=== PATIENT | female | born 1990 | race Caucasian/White ===

== ENCOUNTER → 2016-07-06 | Outpatient (REF) | payer OTHER, MEDICAID ==
[~2016-07-06] MED LIST: /MOM400 PO; ACET50TA PO; CLAR5CHW; DOCU10ELUD PO; Fish Oil PO; IBUP800T; IRON325T3 PO; LAMI200T3 PO; LAMO10TA PO; MOTR200T44 PO; PERC5TAB6 PO; PRENTAB74 PO; PROP10TAB; PROZ20CA; PROZ40CA; TOPA100T8 PO; TOPI100T; VITA200038 PO; VITAMIN D50000 UNT; ZOLO25TA PO; ZOMI5TAB; [UNRECOGNIZED DRUG - CODE] TOP; [UNRECOGNIZED DRUG - OTHER]
== END ==
LOC: M LAB REF 13:01
PROVIDERS: ATTEND Advanced Practice Midwife
DX: Z34.83 Encounter for supervision of other normal pregnancy, third trimester (principal)

== ENCOUNTER → 2016-07-09 | Outpatient (CLI) | payer OTHER ==
--- NOTE | 2016-07-09 14:24 | REP ---
OBSTETRIC SONOGRAPHY: HISTORY: Supervision of growth study. Size/date discrepancy. FINDINGS: Scanning demonstrates a viable single intrauterine gestation in a cephalic lie. heart rate is recorded at 139 beats per minute. A posterior placenta is seen without evidence of previa. Amniotic fluid is subjectively normal. Amniotic fluid index is normal at 10.3 cm. There is evidence of umbilical cord around the neck. S/D ratio in the umbilical cord artery by Doppler is normal at 2.22. cranium, cavum, lungs, diaphragm, left-sided stomach, kidneys, bladder and spine are seen. Biometry Chart: BPD 8.8 cm = 35 weeks 5 days HC 33.1 cm = 37 weeks 5 days AC 32.8 cm = 36 weeks 5 days FL 7.1 cm = 36 weeks 3 days CD 3.5 cm = 29 weeks 4 days HC/AC ratio normal 1.01. Cephalic index normal 0.74. Estimated weight 2982 grams, 6 pounds 9 ounces, 71st percentile for 35 weeks 3 days. IMPRESSION: Viable single intrauterine gestation at 36 weeks 3 days by today's composite sonographic criteria. Expected gestational age estimate based on prior sonography is 35 weeks 3 days. ANSLEY by prior sonography is August 10, 2016. Nuchal cord was seen. Signed by Juan Broderick MD 07/09/2016 03:20 P
== END ==
LOC: M SMT 09:51
PROVIDERS: ATTEND Advanced Practice Midwife
DX: O26.843 Uterine size-date discrepancy, third trimester (principal); Z36 Encounter for antenatal screening of mother; Z3A.36 36 weeks gestation of pregnancy

== ENCOUNTER 2016-08-05 06:45 | Inpatient (IN) | payer MEDICAID, OTHER ==
[2016-08-05] VITALS (8 sets, daily range): BP systolic 138–156; BP diastolic 68–86
[~2016-08-05] VITALS: Ht 165.1 cm; Wt 114.0 kg
[2016-08-05] MEDS ORDERED: RANI1TAB6 PO (06:59)
[2016-08-05] MEDS: miSOPROStol 50 MCG 1/2 TAB (S0191) PO SCH ×2 (08:02→14:14)
[2016-08-05 08:03] LABS: MEAN CORPUSCULAR HEMOGLOBIN 25.2 pg (27.0-33.0); MEAN CORPUSCULAR HGB CONC 31.3 g/dl (32.0-36.5); MEAN CORPUSCULAR VOLUME 80.4 fl (80.0-96.0); WHITE BLOOD COUNT 7.4 K/mm3 (4.0-10.0)
[2016-08-05] MEDS ORDERED: PENICILLIN G POTASSIUM IV 5 MU in D5W MINI-BAG PLUS 100 ML IV STA (08:08)
--- NOTE | 2016-08-05 08:50 | HPE ---
DATE OF ADMISSION: 08/05/2016 HISTORY: A 26-year-old (G) 5, para (P) 3 female at 39-2/7 weeks gestation by last menstrual period (LMP) consistent with 10-week ultrasound, estimated date of confinement (EDC) 08/10/2016 who presents for labor induction. The indication for induction is essentially elective. However, the patient has a history of severe depression and wants to get back on her depression medications as soon as possible, so a secondary indication for the induction is history of severe depression. COURSE: The patient initiated care at 10 weeks gestation on 01/13/2016. Her first trimester blood pressure was 102/64, weight 233 pounds. She was on Zoloft during for depression. She had previously been on Lamictal for severe depression but stopped that prior to . She sees Dr. Haque for mental health evaluations. OBSTETRICAL HISTORY: 1. In 2010, a 41 week vaginal delivery of an 8 pound, 12 ounce female . No complications. 2. In 2011, a 6 week miscarriage. 3. In April 2012, vaginal delivery of a 6 pound, 7 ounce female infant, no complications, 39 weeks. 4. In November 2013, a 40 week vaginal delivery of an 8 pound, 3 ounce male . No complications. PAST MEDICAL HISTORY: 1. Severe depression and anxiety. 2. Migraine headaches. 3. Mild asthma. PAST SURGICAL HISTORY: 1. Breast reduction surgery in 2014. 2. Tonsils and adenoids in 2008. ALLERGIES: CODEINE. SOCIAL HISTORY: The patient is . She denies cigarettes, alcohol, or drug use. FAMILY HISTORY: Noncontributory. PHYSICAL EXAMINATION: Blood pressure 134/84, weight 249. She is in no apparent distress. HEAD AND NECK EXAMINATION: Normal. LUNGS: Clear. HEART: Regular rate and rhythm. ABDOMEN: Nontender, gravid. heart tones category 1. Cervix 2 cm, 50%, -2 station, vertex, soft, posterior. EXTREMITIES: Nontender. LABORATORY DATA: Blood type AB positive. Rubella immune. RPR nonreactive. Hepatitis B and C negative. HIV negative. GBS positive on 07/06/2016. ASSESSMENT: A 26-year-old (G) 5, para (P) 3 female at 39-2/7 weeks gestation who presents for induction of labor. The risks of induction were discussed. The patient is admitted on 08/05/2016.
[2016-08-05] MEDS: PENICILLIN G POTASSIUM IV 2.5 MU in D5W 100 ML IV SCH ×3 (12:15→19:59)
[2016-08-05] MEDS ORDERED: FENTANYL 2MCG/ML ROPIVACAINE 0.2% NACL 250 ML CADD As Ordered ONE (17:51)
[2016-08-05] MEDS ORDERED: LACTATED RINGER'S 1000 ML IV PRN (18:10)
[2016-08-05] MEDS ORDERED: REFRIGERATOR IV KEYS XX PRN (18:10)
[2016-08-05] MEDS ORDERED: diphenhydrAMINE INJ 50MG/ML VIAL (J1200) IV PRN (18:10)
[2016-08-05] MEDS ORDERED: ePHEDrine SULFATE 25 MG/5 ML(5MG/ML) SYRINGE IV PRN (18:10)
[2016-08-05] MEDS ORDERED: ONDANSETRON 4MG/2ML VIAL (J2405) IV PRN (18:10)
[2016-08-05] MEDS ORDERED: EPIDURAL/PCA KEYS XX PRN (18:10)
[2016-08-05] MEDS ORDERED: NALOXONE INJ 0.4 MG/1 ML VIAL (J2310) IV PRN (18:10)
[2016-08-05] MEDS ORDERED: FENTANYL/ROPIVACAINE/NACL CADD 250 ML EPIDURAL SCH (18:10)
[2016-08-05] MEDS ORDERED: EPIDURAL COMMENT XX SCH (18:10)
[2016-08-05] MEDS ORDERED: FAMOTIDINE 20 MG TAB PO ONE (19:00)
[2016-08-05] MEDS ORDERED: OXYTOCIN DRIP 30 UNITS in APPROPRIATE DILUENT 1 EA IV SCH (20:15)
[2016-08-06] MEDS ORDERED: DIBUCAINE 1% OINTMENT 30GM TOP PRN (01:00)
[2016-08-06] MEDS ORDERED: DOCUSATE SODIUM 100 MG CAP PO PRN (01:00)
[2016-08-06] MEDS ORDERED: OXYTOCIN DRIP 30 UNITS in APPROPRIATE DILUENT 1 EA IV ONE (01:00)
[2016-08-06] MEDS ORDERED: METHYLERGONOVINE MALEATE 0.2 MG TAB PO PRN (01:00)
[2016-08-06] MEDS ORDERED: MEASLES,MUMPS,RUBELLA VACCINE INJ (MMR-II) (90707) SC SCH (01:00)
[2016-08-06] MEDS ORDERED: RHOGAM 300 MCG (1500 IU) INJ (J2790) IM SCH (01:00)
[2016-08-06] MEDS: IBUPROFEN 800 MG TAB PO PRN ×3 (01:06→19:34)
[2016-08-06 05:55] VITALS: BP 141/94
[2016-08-06] MEDS: ACETAMINOPHEN 500 MG TAB PO PRN ×2 (05:58→15:42)
[2016-08-06] MEDS: PRENATAL VITAMIN TAB PO SCH (08:11)
--- NOTE | 2016-08-06 13:37 | DN ---
DATE OF DELIVERY: 08/05/2016 PRE-DELIVERY DIAGNOSIS: 39 weeks gestation. POST DELIVERY DIAGNOSIS: Delivered. PROCEDURE: Spontaneous vaginal delivery. SURGEON: Dr. Rajan Alejandro. RADIATION CONTROL HEALTH PHYSICIST: ANESTHESIA: Epidural. ESTIMATED BLOOD LOSS: 300 mL FINDINGS: 8 pound 13 ounce male infant, 7 and 9. DELIVERY SUMMARY: After short second stage, patient spontaneously delivered an 8 pound 13 ounce male with epidural anesthesia. 7 and 9. Nuchal cord time one was reduced manually. Shoulders delivered spontaneously with ease. The infant cried spontaneously and was handed to the mother. The cord was doubly clamped and cut. The placenta delivered spontaneously and appeared to be intact. The patient received IV Pitocin immediately after delivery of the placenta. There were no vaginal lacerations present.
[2016-08-06 18:27] VITALS: BP 128/72
[2016-08-06] MEDS ORDERED: lamoTRIgine 25 MG TAB PO SCH (21:00)
[2016-08-06] MEDS ORDERED: SERTRALINE HCL 50 MG TAB PO ONE (21:00)
[2016-08-07 05:53] VITALS: BP 122/74
[2016-08-07] MEDS: PRENATAL VITAMIN TAB PO SCH (09:00)
[2016-08-07] MEDS ORDERED: PRENTAB9 PO (09:34)
[2016-08-07] MEDS ORDERED: IBUP-1114 PO (09:34)
[2016-08-07] MEDS ORDERED: LAMO10TA PO (09:34)
[2016-08-07] MEDS ORDERED: ACET50TA PO (09:34)
[2016-08-07] MEDS: IBUPROFEN 800 MG TAB PO PRN (10:14)
[2016-08-07] MEDS: ACETAMINOPHEN 500 MG TAB PO PRN (13:08)
== END 2016-08-07 15:00 | disposition home or self-care (01) | DRG 560 ==
LOC: M LDI 06:45 → M OBS 08-06 02:24
PROVIDERS: ADMIT Specialist; ATTEND Specialist
PROC: 10E0XZZ Delivery of Products of Conception, External Approach (ICD-10-PCS; principal; 2016-08-05)
DX: O69.82X0 Labor and delivery complicated by other cord entanglement, without compression, not applicable or unspecified (principal); O99.344 Other mental disorders complicating childbirth; F32.9 Major depressive disorder, single episode, unspecified; Z37.0 Single live birth; Z3A.39 39 weeks gestation of pregnancy

== ENCOUNTER → 2016-10-31 | Outpatient (REF) | payer OTHER ==
[~2016-10-31] MED LIST changes: +IBUP-1114 PO; +PRENTAB9 PO; +RANI1TAB6 PO
[2016-10-31 19:03] LABS: FREE T4 0.89 NG/DL (0.76-1.46)
== END ==
LOC: M SFHCPLAZ 15:20
PROVIDERS: ATTEND Nurse Practitioner Family
DX: E66.9 Obesity, unspecified (principal)

== ENCOUNTER → 2016-12-10 | Outpatient (REF) | payer OTHER, MEDICAID ==
[~2016-12-10] MED LIST changes: +LAMI1TAB9 PO; -LAMI200T3 PO; +PERC5TAB12 PO; -PERC5TAB6 PO; +TOPA100T12 PO; -TOPA100T8 PO
== END ==
LOC: M SFHCPLAZ 12:50
PROVIDERS: ATTEND Nurse Practitioner Family
DX: N61.0 Mastitis without abscess (principal)

== ENCOUNTER → 2016-12-19 | Outpatient (CLI) | payer OTHER ==
[2016-12-19 13:15] LABS: BASO # 0.1 K/mm3 (0.0-0.2); BASO % 0.9 % (0.0-1.0); EOS # 0.2 K/mm3 (0.0-0.50); EOS % 1.7 % (0.0-3.0); LARGE UNSTAINED CELL # 0.1 K/mm3 (0.0-0.4); LARGE UNSTAINED CELL % 1.4 % (0.0-4.0); LYMPH # 2.2 K/mm3 (1.5-6.5); LYMPH % 23.4 % (24.0-44.0); MEAN CORPUSCULAR HEMOGLOBIN 28.8 pg (27.0-33.0); MEAN CORPUSCULAR HGB CONC 33.2 g/dl (32.0-36.5); MEAN CORPUSCULAR VOLUME 86.5 fl (80.0-96.0); MONO # 0.6 K/mm3 (0.0-0.8); NEUTROPHILS # 5.9 K/mm3 (1.8-7.7); NEUTROPHILS % 65.5 % (36.0-66.0); PLATELET COUNT, AUTOMATED 436 k/mm3 (150-450); RED CELL DISTRIBUTION WIDTH 13.1 % (11.5-14.5)
--- NOTE | 2016-12-19 13:53 | REP ---
Focused left breast sonography: History: Left breast abscess. A previous left breast sonography was performed 01 July 2015 Today's sonographic findings: Scanning in the area of concern at approximately 7 o'clock in the left breast demonstrates an oval-shaped hypoechoic area measuring 1.5 x 1.7 x 0.6 cm. Its long axis is parallel to the skin. There is enhanced through transmission deep to this lesion. There is some arterial and venous blood flow within the posterior aspect of this lesion. It is located 4 cm from the nipple. This is the area of the scar from breast reduction in the left breast. I note that the prior sonography showed similar findings at the same location. The patient reports that the these symptoms in this area and occasionally there is purulent drainage. Impression: Hypoechoic area 1.7 cm in greatest diameter at 7 o'clock in the left breast. I cannot exclude abscess. There is blood flow within the posterior aspect of this lesion. Similar findings were noted on 01 July 2015 at the same location in the same breast. Signed by Juan Broderick MD 12/19/2016 02:07 P
== END ==
LOC: M LAB 12:41
PROVIDERS: ATTEND Nurse Practitioner Family
DX: R92.8 Other abnormal and inconclusive findings on diagnostic imaging of breast (principal)

== ENCOUNTER → 2016-12-22 | Outpatient (REF) | payer OTHER | LOC: M LAB REF 19:58 | PROVIDERS: ATTEND Physician Assistant | DX: R30.0 Dysuria (principal) ==

== ENCOUNTER → 2017-03-13 | Outpatient (REF) | payer OTHER, MEDICAID | LOC: M SMT 16:55 | PROVIDERS: ATTEND Nurse Practitioner Family | DX: N76.0 Acute vaginitis (principal) ==

== ENCOUNTER → 2017-07-07 | Outpatient (CLI) | payer OTHER | LOC: M RAD 13:33 | DX: M54.41 Lumbago with sciatica, right side (principal) | CPT/HCPCS: 72110 ==

== ENCOUNTER → 2017-10-04 | Outpatient (CLI) | payer OTHER ==
[2017-10-04 12:30] LABS: ALBUMIN 4.1 GM/DL (3.2-5.2); ALBUMIN/GLOBULIN RATIO 1.17 (1.00-1.93); ALKALINE PHOSPHATASE 79 U/L (45-117); ALT/SGPT 20 U/L (12-78); ANION GAP 7 MEQ/L (8-16); AST/SGOT 15 U/L (7-37); BILIRUBIN,TOTAL 0.3 MG/DL (0.2-1.0); BLOOD UREA NITROGEN 7 MG/DL (7-18); CALCIUM LEVEL 9.3 MG/DL (8.5-10.1); CARBON DIOXIDE LEVEL 26 MEQ/L (21-32); CHLORIDE LEVEL 109 MEQ/L (98-107); CREATININE FOR GFR 0.59 MG/DL (0.55-1.30); FERRITIN 22 NG/ML (8-252); GLOMERULAR FILTRATION RATE > 60.0 (>60); GLUCOSE, FASTING 80 MG/DL (70-100); IRON (FE) 40 UG/DL (50-170); MAGNESIUM LEVEL 1.8 MG/DL (1.8-2.4); PHOSPHORUS LEVEL 2.7 MG/DL (2.5-4.9); POTASSIUM SERUM 4.3 MEQ/L (3.5-5.1); SODIUM LEVEL 142 MEQ/L (136-145); TOTAL IRON BINDING CAPACITY 286 UG/DL (250-450); TOTAL PROTEIN 7.6 GM/DL (6.4-8.2)
[2017-10-04 12:37] LABS: VITAMIN B12 LEVEL 1203 PG/ML (247-911)
[2017-10-04 12:40] LABS: BASO # 0.1 10^3/uL (0.0-0.2); EOS # 0.1 10^3/uL (0.0-0.50); EOS % 1.7 % (0.0-3.0); HEMATOCRIT 42.6 % (36.0-47.0); HEMOGLOBIN 13.9 g/dl (12.0-15.5); IMMATURE GRANULOCYTE % 0.2 % (0-3.0); LYMPH # 1.9 10^3/uL (1.5-6.5); MEAN CORPUSCULAR HGB CONC 32.6 g/dl (32.0-36.5); MEAN CORPUSCULAR VOLUME 85.7 fl (80.0-96.0); MONO # 0.6 10^3/uL (0.0-0.8); MONO % 10.8 % (0.0-5.0); NEUTROPHILS # 3.2 10^3/uL (1.8-7.7); NEUTROPHILS % 54.3 % (36.0-66.0); PLATELET COUNT, AUTOMATED 358 10^3/uL (150-450); RED BLOOD COUNT 4.97 10^6/uL (4.00-5.40); RED CELL DISTRIBUTION WIDTH 15.9 % (11.5-14.5); WHITE BLOOD COUNT 5.9 10^3/uL (4.0-10.0)
[2017-10-04 12:40] LABS: HEMATOCRIT 42.6 % (36.0-47.0)
[2017-10-04 13:18] LABS: ESTIMATED AVERAGE GLUCOSE 82 MG/DL (60-110); HEMOGLOBIN A1c 4.5 %
[2017-10-04 14:31] LABS: RBC FOLATE 690.1 NG/ML (280-791)
[2017-10-08 14:14] LABS: VITAMIN B1 LEVEL WHOLE BLOOD 106.9 nmol/L (66.5-200.0)
== END ==
LOC: M LAB 11:02
DX: E55.9 Vitamin D deficiency, unspecified (principal)
CPT/HCPCS: 83550

== ENCOUNTER → 2018-03-13 | Outpatient (CLI) | payer OTHER ==
[2018-03-13 10:48] LABS: BASO # 0.1 10^3/uL (0.0-0.2); BASO % 0.6 % (0.0-1.0); EOS # 0.3 10^3/uL (0.0-0.50); HEMATOCRIT 43.7 % (36.0-47.0); IMMATURE GRANULOCYTE % 0.2 % (0-3.0); LYMPH % 12.7 % (24.0-44.0); MEAN CORPUSCULAR HEMOGLOBIN 28.6 pg (27.0-33.0); MEAN CORPUSCULAR VOLUME 89.4 fl (80.0-96.0); MONO # 0.6 10^3/uL (0.0-0.8); MONO % 7.3 % (0.0-5.0); NEUTROPHILS # 6.1 10^3/uL (1.8-7.7); NEUTROPHILS % 75.2 % (36.0-66.0); PLATELET COUNT, AUTOMATED 312 10^3/uL (150-450); RED BLOOD COUNT 4.89 10^6/uL (4.00-5.40); RED CELL DISTRIBUTION WIDTH 13.4 % (11.5-14.5); WHITE BLOOD COUNT 8.1 10^3/uL (4.0-10.0)
[2018-03-13 10:54] LABS: HEMATOCRIT 43.3 % (36.0-47.0)
[2018-03-13 11:02] LABS: ALBUMIN 4.3 GM/DL (3.2-5.2); ALKALINE PHOSPHATASE 100 U/L (45-117); ALT/SGPT 19 U/L (12-78); ANION GAP 8 MEQ/L (8-16); AST/SGOT 10 U/L (7-37); BILIRUBIN,TOTAL 0.4 MG/DL (0.2-1.0); BLOOD UREA NITROGEN 10 MG/DL (7-18); CALCIUM LEVEL 9.5 MG/DL (8.5-10.1); CARBON DIOXIDE LEVEL 27 MEQ/L (21-32); CHLORIDE LEVEL 107 MEQ/L (98-107); CREATININE FOR GFR 0.63 MG/DL (0.55-1.30); FERRITIN 11 NG/ML (8-252); GLOMERULAR FILTRATION RATE > 60.0 (>60); GLUCOSE, FASTING 78 MG/DL (70-100); IRON (FE) 67 UG/DL (50-170); MAGNESIUM LEVEL 1.9 MG/DL (1.8-2.4); PERCENT SATURATION 18.2 % (13.2-45.0); PHOSPHORUS LEVEL 3.8 MG/DL (2.5-4.9); POTASSIUM SERUM 4.7 MEQ/L (3.5-5.1); SODIUM LEVEL 142 MEQ/L (136-145); TOTAL IRON BINDING CAPACITY 368 UG/DL (250-450); TOTAL PROTEIN 7.6 GM/DL (6.4-8.2)
[2018-03-13 11:10] LABS: TOTAL 25(OH) VITAMIN D 31.4 NG/ML (30.0-100.0)
[2018-03-13 11:29] LABS: ESTIMATED AVERAGE GLUCOSE 97 MG/DL (60-110)
== END ==
LOC: M LAB 10:12
DX: K91.2 Postsurgical malabsorption, not elsewhere classified (principal); Z98.84 Bariatric surgery status; E55.9 Vitamin D deficiency, unspecified
CPT/HCPCS: 83550

== ENCOUNTER → 2018-06-17 | Outpatient (CLI) | payer OTHER ==
[~2018-06-17] MED LIST changes: +MAPA500T2 PO
--- NOTE | 2018-06-17 16:15 | REP ---
MRCP: MRCP exam was accomplished utilizing multiple heavily T2 weighted sequences in the axial and coronal planes. MIP reconstruction images are performed. Intrahepatic bowel ducts are not dilated. The common bile duct is normal in caliber with a maximum diameter of 4 mm. There is no evidence of choledocholithiasis. The gallbladder does demonstrates dependant material most consistent with mild sludge. Pancreatic duct is not dilated. Visualized portions of the liver, spleen, adrenals, pancreas and kidneys appear essentially unremarkable. There is no definite adenopathy. No free fluid is seen. IMPRESSION: Mild gallbladder sludge. No other evidence of biliary abnormality. Electronically Signed by Rommel Lisa MD 06/17/2018 04:25 P
== END ==
LOC: M RAD 11:12
PROVIDERS: ATTEND Internal Medicine
DX: K82.9 Disease of gallbladder, unspecified (principal)

== ENCOUNTER 2018-07-19 14:22 | Emergency (ER) | payer MEDICAID, OTHER ==
[~2018-07-19] VITALS: Ht 165.1 cm; Wt 75.0 kg
[2018-07-19 15:02] LABS: BASO # 0.1 10^3/uL (0.0-0.2); EOS # 0.2 10^3/uL (0.0-0.50); HEMATOCRIT 42.3 % (36.0-47.0); HEMOGLOBIN 13.5 g/dl (12.0-15.5); LYMPH # 1.9 10^3/uL (1.5-6.5); LYMPH % 32.7 % (24.0-44.0); MEAN CORPUSCULAR HEMOGLOBIN 28.5 pg (27.0-33.0); MEAN CORPUSCULAR HGB CONC 31.9 g/dl (32.0-36.5); MEAN CORPUSCULAR VOLUME 89.2 fl (80.0-96.0); MONO # 0.7 10^3/uL (0.0-0.8); MONO % 11.6 % (0.0-5.0); NEUTROPHILS % 51.4 % (36.0-66.0); PLATELET COUNT, AUTOMATED 369 10^3/uL (150-450); RED BLOOD COUNT 4.74 10^6/uL (4.00-5.40); WHITE BLOOD COUNT 5.9 10^3/uL (4.0-10.0)
[2018-07-19 15:22] LABS: ALBUMIN 4.3 GM/DL (3.2-5.2); ALT/SGPT 24 U/L (12-78); BILIRUBIN,DIRECT < 0.1 MG/DL (0.0-0.2); BILIRUBIN,TOTAL 0.2 MG/DL (0.2-1.0); BLOOD UREA NITROGEN 10 MG/DL (7-18); CALCIUM LEVEL 9.3 MG/DL (8.5-10.1); CARBON DIOXIDE LEVEL 28 MEQ/L (21-32); CHLORIDE LEVEL 103 MEQ/L (98-107); CREATININE FOR GFR 0.62 MG/DL (0.55-1.30); GLOMERULAR FILTRATION RATE > 60.0 (>60); GLUCOSE, FASTING 97 MG/DL (70-100); LIPASE 66 U/L (73-393); POTASSIUM SERUM 4.2 MEQ/L (3.5-5.1); SODIUM LEVEL 137 MEQ/L (136-145); TOTAL PROTEIN 7.8 GM/DL (6.4-8.2)
[2018-07-19 15:26] LABS: HCG, SERUM QUALITATIVE NEGATIVE (NEGATIVE)
[2018-07-19] MEDS ORDERED: KETOROLAC 30 MG/ML VIAL (J1885) IV ONE (17:15)
[2018-07-19] MEDS ORDERED: ISOVUE-370 76% 100ML VIAL (Q9967) As Ordered ONE (17:18)
--- NOTE | 2018-07-19 17:42 | REPVR ---
EXAM: CT Abdomen and Pelvis With Contrast EXAM DATE/TIME: 07/19/2018 5:21 PM CLINICAL HISTORY: 28 years old, female; Pain; Abdominal pain; Localized; Left lower quadrant (llq); Additional info: Llq pain, HX of bypass TECHNIQUE: Axial computed tomography images of the abdomen and pelvis with intravenous contrast. All CT scans at this facility use at least one of these dose optimization techniques: automated exposure control; mA and/or kV adjustment per patient size (includes targeted exams where dose is matched to clinical indication); or iterative reconstruction. Coronal and sagittal reformatted images were created and reviewed. CONTRAST: 100 ml of ISOVUE 370 administered intravenously. COMPARISON: CT ABD PELVIS WITH CONTRAST 11/05/2012 3:22 PM FINDINGS: Lower thorax: No acute findings. ABDOMEN: Liver: There is a diffuse decrease in hepatic parenchymal density, consistent with fatty infiltration. Gallbladder and bile ducts: Normal. No calcified stones. No ductal dilation. Pancreas: Normal. No ductal dilation. Spleen: Borderline splenomegaly.This patient is status post gastric bypass surgery. Adrenals: Normal. No mass. Kidneys and ureters: Normal. No hydronephrosis. Stomach and bowel: Small amount of fluid surrounds the distal rectosigmoid which may be related to functional etiology. Inflammatory changes related to colonic disease not excluded. There is increased feces throughout the colon consistent with constipation. Appendix: No evidence of appendicitis. PELVIS: Bladder: Unremarkable as visualized. Reproductive: Enhancing collapsing corpus luteum cyst left ovary measures 1.8 x 2.1 cm. ABDOMEN and PELVIS: Intraperitoneal space: Normal. No free air. No significant fluid collection. Bones/joints: No acute fracture. No dislocation. Soft tissues: Unremarkable. Vasculature: Normal. No abdominal aortic aneurysm. Lymph nodes: Normal. No enlarged lymph nodes. IMPRESSION: 1. There is a diffuse decrease in hepatic parenchymal density, consistent with fatty infiltration. 2. Borderline splenomegaly.This patient is status post gastric bypass surgery. 3. Small amount of fluid surrounds the distal rectosigmoid which may be related to functional etiology. Inflammatory changes related to colonic disease not excluded. 4. There is increased feces throughout the colon consistent with constipation. Electronically signed by: Manuel Figueroa On 07/19/2018 17:42:23 PM
[2018-07-19 18:06] VITALS: BP 97/52
[2018-07-19] MEDS ORDERED: COLA100C5 PO (18:09)
[2018-07-19] MEDS ORDERED: DICYCLOMINE 10 MG CAP PO ONE (18:15)
--- NOTE | 2018-07-19 20:02 | ED PDOC ---
Post-Departure Follow-Up certified letter sent to pt re formal read of ct abd/p. please see reading. need s fu. no pcp listed. if pcp available then fax report. if no pcp then refer to [facility] and fax report there. Ruth Jacob MD Jul 19, 2018 20:02
== END 2018-07-19 18:23 | disposition home or self-care (01) ==
LOC: M ED 14:22
DX: K59.00 Constipation, unspecified (principal); R10.32 Left lower quadrant pain; R63.0 Anorexia; F31.9 Bipolar disorder, unspecified; F43.10 Post-traumatic stress disorder, unspecified; Z98.84 Bariatric surgery status; Z87.891 Personal history of nicotine dependence; Z88.5 Allergy status to narcotic agent; Z79.899 Other long term (current) drug therapy
CPT/HCPCS: 74177; 80048; 80076; 81001; 83690; 84703; 85025; 87086; 96374; 99284; J1885; Q9967

== ENCOUNTER → 2018-08-25 | Outpatient (CLI) | payer OTHER, MEDICAID ==
[~2018-08-25] MED LIST changes: +COLA100C5 PO
[2018-08-25 09:05] LABS: ALBUMIN 4.1 GM/DL (3.2-5.2); ALT/SGPT 17 U/L (12-78); BILIRUBIN,TOTAL 0.4 MG/DL (0.2-1.0); BLOOD UREA NITROGEN 10 MG/DL (7-18); CALCIUM LEVEL 9.2 MG/DL (8.5-10.1); CARBON DIOXIDE LEVEL 29 MEQ/L (21-32); CHLORIDE LEVEL 107 MEQ/L (98-107); CHOLESTEROL LEVEL 150 MG/DL (<200); CHOLESTEROL RISK RATIO 3.488 (<5); CREATININE FOR GFR 0.67 MG/DL (0.55-1.30); GLOMERULAR FILTRATION RATE > 60.0 (>60); GLUCOSE, FASTING 84 MG/DL (70-100); HDL CHOLESTEROL 43 MG/DL (>40); LDL CHOLESTEROL 91 MG/DL (<100); NON-HDL-C 107 MG/DL; POTASSIUM SERUM 4.2 MEQ/L (3.5-5.1); SODIUM LEVEL 141 MEQ/L (136-145); TOTAL PROTEIN 7.3 GM/DL (6.4-8.2); TRIGLYCERIDES LEVEL 79 MG/DL (<150)
== END ==
LOC: M LAB 08:04
PROVIDERS: ATTEND Nurse Practitioner Family
DX: Z00.00 Encounter for general adult medical examination without abnormal findings (principal); Z13.220 Encounter for screening for lipoid disorders

== ENCOUNTER → 2018-09-18 | Outpatient (REF) | payer OTHER, MEDICAID ==
[~2018-09-18] MED LIST changes: -/MOM400 PO; -ACET50TA PO; -DOCU10ELUD PO; +DOCU5LIQ PO; +LAMO100T80 PO; -LAMO10TA PO; +MAPA500T17 PO; +MILK10SU PO; +[UNRECOGNIZED DRUG - CODE] TOP; -[UNRECOGNIZED DRUG - CODE] TOP
[2018-09-18 14:29] LABS: CHLAMYDIA DNA AMPLIFICATION NEGATIVE (NEGATIVE); GC DNA AMPLIFICATION NEGATIVE (NEGATIVE)
== END ==
LOC: M LAB REF 12:47
PROVIDERS: ATTEND Physician Assistant
DX: N76.0 Acute vaginitis (principal)

== ENCOUNTER → 2018-12-18 | Outpatient (CLI) | payer OTHER, MEDICAID ==
[~2018-12-18] MED LIST changes: +DOXY100C37; +ONDA4TAB6 PO
[2018-12-18 12:41] LABS: BASO # 0.1 10^3/uL (0.0-0.2); BASO % 1.3 % (0.0-1.0); EOS # 0.4 10^3/uL (0.0-0.50); EOS % 6.6 % (0.0-3.0); HEMATOCRIT 38.6 % (36.0-47.0); HEMOGLOBIN 12.3 g/dl (12.0-15.5); LYMPH # 2.1 10^3/uL (1.5-6.5); LYMPH % 38.8 % (24.0-44.0); MEAN CORPUSCULAR HEMOGLOBIN 28.5 pg (27.0-33.0); MEAN CORPUSCULAR HGB CONC 31.9 g/dl (32.0-36.5); MEAN CORPUSCULAR VOLUME 89.6 fl (80.0-96.0); MONO # 0.6 10^3/uL (0.0-0.8); MONO % 10.3 % (0.0-5.0); NEUTROPHILS # 2.3 10^3/uL (1.8-7.7); NEUTROPHILS % 42.8 % (36.0-66.0); PLATELET COUNT, AUTOMATED 395 10^3/uL (150-450); RED BLOOD COUNT 4.31 10^6/uL (4.00-5.40); WHITE BLOOD COUNT 5.3 10^3/uL (4.0-10.0)
[2018-12-18 12:47] LABS: HEMATOCRIT 38.6 % (36.0-47.0)
[2018-12-18 12:59] LABS: HEMOGLOBIN A1c 5.1 %
[2018-12-18 14:25] LABS: ALT/SGPT 32 U/L (12-78); BILIRUBIN,TOTAL 0.3 MG/DL (0.2-1.0); BLOOD UREA NITROGEN 8 MG/DL (7-18); CALCIUM LEVEL 8.9 MG/DL (8.5-10.1); CARBON DIOXIDE LEVEL 28 MEQ/L (21-32); CHLORIDE LEVEL 106 MEQ/L (98-107); CREATININE FOR GFR 0.66 MG/DL (0.55-1.30); FERRITIN 6 NG/ML (8-252); GLOMERULAR FILTRATION RATE > 60.0 (>60); GLUCOSE, FASTING 79 MG/DL (70-100); IRON (FE) 38 UG/DL (50-170); MAGNESIUM LEVEL 2.1 MG/DL (1.8-2.4); PERCENT SATURATION 9.6 % (13.2-45.0); PHOSPHORUS LEVEL 3.8 MG/DL (2.5-4.9); POTASSIUM SERUM 4.3 MEQ/L (3.5-5.1); SODIUM LEVEL 141 MEQ/L (136-145); TOTAL 25(OH) VITAMIN D 35.2 NG/ML (30.0-100.0); TOTAL IRON BINDING CAPACITY 395 UG/DL (250-450); TOTAL PROTEIN 7.5 GM/DL (6.4-8.2); VITAMIN B12 LEVEL 360 PG/ML (247-911)
== END ==
LOC: M LAB 11:41
PROVIDERS: ATTEND Physician Assistant Surgical
DX: K91.2 Postsurgical malabsorption, not elsewhere classified (principal); Z98.84 Bariatric surgery status; E55.9 Vitamin D deficiency, unspecified

== ENCOUNTER 2018-12-23 07:39 | Emergency (ER) | payer MEDICAID, OTHER ==
[~2018-12-23] VITALS: Ht 165.1 cm; Wt 70.9 kg
[~2018-12-23 07:39] MED LIST changes: -DOXY100C37; -ONDA4TAB6 PO
[2018-12-23] MEDS ORDERED: DOXY100C37 (07:46)
[2018-12-23] MEDS ORDERED: NS 1,000 ML IV ONE ×2 (09:00→13:00)
[2018-12-23] MEDS ORDERED: METOCLOPRAMIDE INJ 10MG/2ML VIAL (J2765) IV ONE (09:00)
[2018-12-23 09:30] LABS: BASO % 0.9 % (0.0-1.0); EOS % 0.2 % (0.0-3.0); HEMOGLOBIN 11.7 g/dl (12.0-15.5); LYMPH # 0.6 10^3/uL (1.5-6.5); LYMPH % 13.4 % (24.0-44.0); MEAN CORPUSCULAR HEMOGLOBIN 27.9 pg (27.0-33.0); MEAN CORPUSCULAR HGB CONC 31.6 g/dl (32.0-36.5); MEAN CORPUSCULAR VOLUME 88.1 fl (80.0-96.0); MONO # 0.3 10^3/uL (0.0-0.8); MONO % 7.6 % (0.0-5.0); NEUTROPHILS # 3.5 10^3/uL (1.8-7.7); NEUTROPHILS % 77.7 % (36.0-66.0); PLATELET COUNT, AUTOMATED 240 10^3/uL (150-450); WHITE BLOOD COUNT 4.5 10^3/uL (4.0-10.0)
[2018-12-23] MEDS ORDERED: KETOROLAC 30 MG/ML VIAL (J1885) IV ONE (09:45)
[2018-12-23 09:51] LABS: BLOOD UREA NITROGEN 4 MG/DL (7-18); CALCIUM LEVEL 8.6 MG/DL (8.5-10.1); CARBON DIOXIDE LEVEL 27 MEQ/L (21-32); CHLORIDE LEVEL 107 MEQ/L (98-107); CREATININE FOR GFR 0.55 MG/DL (0.55-1.30); GLOMERULAR FILTRATION RATE > 60.0 (>60); GLUCOSE, FASTING 82 MG/DL (70-100); POTASSIUM SERUM 3.8 MEQ/L (3.5-5.1); SODIUM LEVEL 139 MEQ/L (136-145)
--- NOTE | 2018-12-23 09:53 | REP ---
CT of the brain without IV contrast: There is no hemorrhage. There is no edema, mass effect or midline shift. Ventricles are normal size. The cortical stripe is unremarkable. The visualized paranasal sinuses and mastoid air cells are clear. Impression: There is no hemorrhage, acute infarct or mass. Essentially negative CT study of the brain. Electronically Signed by Rommel Vela MD 12/23/2018 09:46 A
[2018-12-23 09:54] LABS: ERYTHROCYTE SEDIMENTATION RATE 23 mm/hr (0-20)
[2018-12-23] MEDS ORDERED: LIDOCAINE 2% W/EPIN INJ 20ML **PRES FREE As Ordered ONE (12:39)
[2018-12-23 13:11] LABS: APPEARANCE, CSF CLEAR (CLEAR); COLOR, CSF COLORLESS (COLORLESS); CSF TUBE# CELL CNT TUBE 1
[2018-12-23 13:28] LABS: CSF TUBE# GLU TUBE 3; CSF TUBE# TP TUBE 4; GLUCOSE CSF 50 MG/DL (40-75); TOTAL PROTEIN,CSF 33 MG/DL (15-45)
[2018-12-23] MEDS ORDERED: ONDA4TAB6 PO (13:51)
[2018-12-23 14:34] VITALS: BP 121/65
[2018-12-25 00:09] LABS: Lyme Disease IgG Ab 18 kDa Ban Absent (.); Lyme Disease IgG Ab 23 kDa Ban Absent (.); Lyme Disease IgG Ab 28 kDa Ban Absent (.); Lyme Disease IgG Ab 30 kDa Ban Absent (.); Lyme Disease IgG Ab 39 kDa Ban Absent (.); Lyme Disease IgG Ab 41 kDa Ban Absent (.); Lyme Disease IgG Ab 45 kDa Ban Absent (.); Lyme Disease IgG Ab 58 kDa Ban Absent (.); Lyme Disease IgG Ab 66 kDa Ban Absent (.); Lyme Disease IgG Ab 93 kDa Ban Absent (.); Lyme Disease IgG West Blot Int Negative (.); Lyme Disease IgG/IgM Antibodie <0.91 ISR (0.00-0.90); Lyme Disease IgM Ab 23 kDa Ban Present (.); Lyme Disease IgM Ab 39 kDa Ban Absent (.); Lyme Disease IgM Ab 41 kDa Ban Absent (.); Lyme Disease IgM Ab Quantitati 0.94 index (0.00-0.79); Lyme Disease IgM West Blot Int Negative (.)
== END 2018-12-23 15:09 | disposition home or self-care (01) ==
LOC: M ED 07:39
DX: A26.0 Cutaneous erysipeloid (principal); R50.9 Fever, unspecified; R51 Headache; F32.9 Major depressive disorder, single episode, unspecified; Z98.84 Bariatric surgery status; Z88.5 Allergy status to narcotic agent; Z79.899 Other long term (current) drug therapy
CPT/HCPCS: 62270; 70450; 80048; 82945; 84157; 85025; 85652; 86140; 86617; 87040; 87070; 87205; 89050; 96361; 96374; 96375; 99284; J1885; J2765

== ENCOUNTER → 2019-07-09 | Outpatient (CLI) | payer OTHER, MEDICAID ==
[~2019-07-09] MED LIST changes: +DOXY100C37; +ONDA4TAB6 PO; +RANI-397 PO; -RANI1TAB6 PO
[2019-07-09 13:20] LABS: ALBUMIN 4.1 GM/DL (3.2-5.2); ALT/SGPT 25 U/L (12-78); BILIRUBIN,DIRECT 0.2 MG/DL (0.0-0.2); BILIRUBIN,TOTAL 0.3 MG/DL (0.2-1.0); TOTAL PROTEIN 7.5 GM/DL (6.4-8.2)
[2019-07-10 11:05] LABS: HIV 1&2 SCREEN CENTAUR NEGATIVE (NEGATIVE)
== END ==
LOC: M PLALAB 11:34
PROVIDERS: ATTEND Advanced Practice Midwife
DX: Z01.419 Encounter for gynecological examination (general) (routine) without abnormal findings (principal); Z11.3 Encounter for screening for infections with a predominantly sexual mode of transmission

== ENCOUNTER → 2019-07-22 | Outpatient (CLI) | payer OTHER ==
--- NOTE | 2019-07-22 13:12 | REP ---
Clinical: Pelvic pain. Technique: Transabdominal pelvic ultrasound followed by transvaginal examination for better evaluation of the endometrium and adnexa with color Doppler evaluation of the ovaries. Findings: Bladder is normal and measures 11.5 x 11.6 x 7.0 cm Normal anteverted uterus measures 9.0 x 4.9 x 5.4 cm. Endometrial complex measures 17 mm thickness and no discrete uterine or endometrial abnormalities appreciated. Right ovary is normal in appearance and vascularity without torsion and measures 3.9 x 2.1 x 2.6 cm (RI 0.40). Left ovary measures 5.0 x 4.3 x 4.8 cm (RI 0.50) and includes a complex cyst with debris and septations measuring 3.9 x 3.3 x 3.8 cm. No pelvic fluid or adnexal mass lesion. Impression: 1. 3.9 cm complex cyst in the left ovary. Consider follow-up examination in 4-6 weeks to evaluate for resolution. 2. Normal uterus and right ovary.
--- NOTE | 2019-07-22 14:59 | REP ---
Focused left breast sonography: History: Mastodynia left breast. Sonographic findings: The patient is status post breast reduction surgery. Scanning is performed about the 9 o'clock area in the region of the patient's pain. Heterogeneous fibroglandular background echotexture is seen. No cyst, mass, or architectural distortion is seen. Impression: BIRADS category 1 negative focused left breast sonography. Clinical followup is advised.
== END ==
LOC: M WHC 10:54
PROVIDERS: ATTEND Advanced Practice Midwife
DX: R10.2 Pelvic and perineal pain (principal); N64.4 Mastodynia

== ENCOUNTER → 2019-10-19 | Outpatient (REF) | payer OTHER, MEDICAID ==
[2019-10-19 22:03] LABS: CHLAMYDIA DNA AMPLIFICATION NEGATIVE (NEGATIVE); GC DNA AMPLIFICATION NEGATIVE (NEGATIVE)
== END ==
LOC: M LAB REF 19:31
PROVIDERS: ATTEND Physician Assistant
DX: R30.0 Dysuria (principal)

== ENCOUNTER → 2019-10-21 | Outpatient (CLI) | payer OTHER, MEDICAID ==
[2019-10-21 09:41] LABS: BASO # 0.1 10^3/uL (0.0-0.2); EOS # 0.3 10^3/uL (0.0-0.5); EOS % 7.3 % (0.0-3.0); HEMATOCRIT 34.2 % (36.0-47.0); HEMOGLOBIN 10.7 g/dl (12.0-15.5); LYMPH # 1.6 10^3/uL (1.5-5.0); LYMPH % 39.6 % (24.0-44.0); MEAN CORPUSCULAR HEMOGLOBIN 25.7 pg (27.0-33.0); MEAN CORPUSCULAR HGB CONC 31.3 g/dl (32.0-36.5); MONO # 0.5 10^3/uL (0.0-0.8); MONO % 12.4 % (0.0-5.0); NEUTROPHILS # 1.5 10^3/uL (1.5-8.5); NEUTROPHILS % 38.4 % (36.0-66.0); PLATELET COUNT, AUTOMATED 334 10^3/uL (150-450); RED BLOOD COUNT 4.17 10^6/uL (4.00-5.40)
[2019-10-21 09:48] LABS: HEMATOCRIT 34.2 % (36.0-47.0)
[2019-10-21 10:08] LABS: ALBUMIN 3.9 GM/DL (3.2-5.2); ALT/SGPT 24 U/L (12-78); BILIRUBIN,TOTAL 0.3 MG/DL (0.2-1.0); BLOOD UREA NITROGEN 8 MG/DL (7-18); CALCIUM LEVEL 8.6 MG/DL (8.5-10.1); CARBON DIOXIDE LEVEL 28 MEQ/L (21-32); CHLORIDE LEVEL 108 MEQ/L (98-107); CREATININE FOR GFR 0.65 MG/DL (0.55-1.30); FERRITIN 3 NG/ML (8-252); FREE T4 0.92 NG/DL (0.76-1.46); GLOMERULAR FILTRATION RATE > 60.0 (>60); GLUCOSE, FASTING 77 MG/DL (70-100); IRON (FE) 26 UG/DL (50-170); POTASSIUM SERUM 4.6 MEQ/L (3.5-5.1); SODIUM LEVEL 140 MEQ/L (136-145); THYROID STIMULATING HORMONE 0.831 uIU/ML (0.358-3.740); TOTAL PROTEIN 7.2 GM/DL (6.4-8.2)
[2019-10-21 10:13] LABS: TOTAL 25(OH) VITAMIN D 16.6 NG/ML (30.0-100.0)
[2019-10-21 10:14] LABS: VITAMIN B12 LEVEL 184 PG/ML (247-911)
== END ==
LOC: M WUC 08:17
PROVIDERS: ATTEND Family Medicine
DX: Z98.84 Bariatric surgery status (principal)

== ENCOUNTER 2019-11-24 08:45 | Outpatient (CLI) | payer OTHER ==
[~2019-11-24] VITALS: Ht 165.1 cm; Wt 66.7 kg
[2019-11-24] MEDS ORDERED: IRON SUCROSE 500 MG in NS 250 ML OVER 4 HRS IV ONE (09:30)
[2019-11-24 09:32] VITALS: BP 119/60
[2019-11-24 10:36] VITALS: BP 117/63
[2019-11-24 11:38] VITALS: BP 107/56
[2019-11-24 12:35] VITALS: BP 109/57
[2019-11-24 13:39] VITALS: BP 113/55
== END 2019-11-24 13:40 | disposition home or self-care (01) ==
LOC: M INFU 08:45
PROVIDERS: ATTEND Family Medicine
DX: D50.9 Iron deficiency anemia, unspecified (principal)
CPT/HCPCS: 96365; 96366; J1756

== ENCOUNTER → 2019-11-25 | Outpatient (CLI) | payer OTHER ==
--- NOTE | 2019-11-25 13:57 | REP ---
REASON: Followup ovarian cyst. COMPARISON: 07/22/2019, which showed a 3.9-cm sized complex left ovarian cyst. Transvesical and transvaginal imaging was obtained. There is no change in appearance of the uterus or endometrial echo complex. The right ovary measures 3.5 x 2.2 x 2.2 cm and is within normal limits with an RI 0.49. Left ovary measures 3.5 x 1.7 x 2.6 cm. The 3.9-cm sized complex left ovarian cyst seen previously has resolved. There is a 1.9-cm sized resolving follicle seen incidentally. There is a small amount of free fluid in the cul-de-sac. Urinary bladder measures approximately 10 x 7 x 10 cm. IMPRESSION: Incidental resolving left ovarian hemorrhagic follicle is suspected. The large mass seen previously has resolved.
== END ==
LOC: M WHC 10:22
PROVIDERS: ATTEND Advanced Practice Midwife
DX: N83.02 Follicular cyst of left ovary (principal)

== ENCOUNTER → 2019-11-27 | Outpatient (CLI) | payer OTHER | LOC: M PLALAB 10:25 | PROVIDERS: ATTEND Surgery | DX: Z13.79 Encounter for other screening for genetic and chromosomal anomalies (principal); Z80.3 Family history of malignant neoplasm of breast ==

== ENCOUNTER → 2019-12-04 | Outpatient (CLI) | payer OTHER ==
--- NOTE | 2019-12-05 09:07 | REP ---
LEFT BREAST ULTRASOUND: Real-time sonographic evaluation of the left breast is performed in the region of pain between 2 and 5-o'clock position. No cystic or solid nodule is seen. IMPRESSION: BIRADS category 1 negative ultrasound left breast. No cystic or solid nodule in the region of pain between 2 and 5-o'clock.
== END ==
LOC: M WHC 15:58
PROVIDERS: ATTEND Surgery
DX: N64.4 Mastodynia (principal)

== ENCOUNTER → 2020-01-26 | Outpatient (REF) | payer OTHER, MEDICAID ==
[2020-02-26 11:39] LABS: PERCENT SATURATION 14.1 % (13.2-45.0); TOTAL 25(OH) VITAMIN D 92.4 NG/ML (30.0-100.0)
[2020-03-15 10:47] LABS: BASO # 0.1 10^3/uL (0.0-0.2); BASO % 1.3 % (0.0-1.0); EOS # 0.4 10^3/uL (0.0-0.5); EOS % 8.9 % (0.0-3.0); HEMATOCRIT 40.6 % (36.0-47.0); HEMOGLOBIN 12.5 g/dl (12.0-15.5); LYMPH # 1.7 10^3/uL (1.5-5.0); LYMPH % 41.9 % (24.0-44.0); MEAN CORPUSCULAR HEMOGLOBIN 27.1 pg (27.0-33.0); MEAN CORPUSCULAR HGB CONC 30.8 g/dl (32.0-36.5); MEAN CORPUSCULAR VOLUME 87.9 fl (80.0-96.0); MONO # 0.4 10^3/uL (0.0-0.8); MONO % 11.2 % (0.0-5.0); NEUTROPHILS # 1.5 10^3/uL (1.5-8.5); NEUTROPHILS % 36.7 % (36.0-66.0); PLATELET COUNT, AUTOMATED 391 10^3/uL (150-450); RED BLOOD COUNT 4.62 10^6/uL (4.00-5.40); WHITE BLOOD COUNT 3.9 10^3/uL (4.0-10.0)
== END ==
LOC: M LAB REF 15:37 → M WUC 15:37
PROVIDERS: ATTEND Family Medicine
DX: D51.9 Vitamin B12 deficiency anemia, unspecified (principal); E55.9 Vitamin D deficiency, unspecified; D50.9 Iron deficiency anemia, unspecified

== ENCOUNTER → 2020-03-05 | Outpatient (CLI) | payer OTHER, MEDICAID ==
[2020-03-05 18:41] LABS: BASO # 0.1 10^3/uL (0.0-0.2); BASO % 1.6 % (0.0-1.0); EOS # 0.3 10^3/uL (0.0-0.5); EOS % 6.5 % (0.0-3.0); HEMATOCRIT 41.7 % (36.0-47.0); HEMOGLOBIN 12.9 g/dl (12.0-15.5); LYMPH # 1.5 10^3/uL (1.5-5.0); LYMPH % 39.4 % (24.0-44.0); MEAN CORPUSCULAR HEMOGLOBIN 27.5 pg (27.0-33.0); MEAN CORPUSCULAR HGB CONC 30.9 g/dl (32.0-36.5); MEAN CORPUSCULAR VOLUME 88.9 fl (80.0-96.0); MONO # 0.5 10^3/uL (0.0-0.8); MONO % 11.7 % (0.0-5.0); NEUTROPHILS # 1.6 10^3/uL (1.5-8.5); NEUTROPHILS % 40.8 % (36.0-66.0); PLATELET COUNT, AUTOMATED 396 10^3/uL (150-450); RED BLOOD COUNT 4.69 10^6/uL (4.00-5.40); WHITE BLOOD COUNT 3.8 10^3/uL (4.0-10.0)
[2020-03-05 19:02] LABS: ERYTHROCYTE SEDIMENTATION RATE 4 mm/hr (0-20)
[2020-03-05 19:07] LABS: ALT/SGPT 26 U/L (12-78); BILIRUBIN,TOTAL 0.4 MG/DL (0.2-1.0); BLOOD UREA NITROGEN 10 MG/DL (7-18); CALCIUM LEVEL 9.4 MG/DL (8.5-10.1); CARBON DIOXIDE LEVEL 29 MEQ/L (21-32); CHLORIDE LEVEL 106 MEQ/L (98-107); CREATININE FOR GFR 0.74 MG/DL (0.55-1.30); GLOMERULAR FILTRATION RATE > 60.0 (>60); GLUCOSE, FASTING 79 MG/DL (70-100); SODIUM LEVEL 140 MEQ/L (136-145); TOTAL PROTEIN 7.3 GM/DL (6.4-8.2)
[2020-03-09 04:07] LABS: ANA (HEP2) Positive (.); Lyme Disease IgG Ab 18 kDa Ban Absent (.); Lyme Disease IgG Ab 23 kDa Ban Absent (.); Lyme Disease IgG Ab 28 kDa Ban Absent (.); Lyme Disease IgG Ab 30 kDa Ban Absent (.); Lyme Disease IgG Ab 39 kDa Ban Absent (.); Lyme Disease IgG Ab 41 kDa Ban Absent (.); Lyme Disease IgG Ab 45 kDa Ban Absent (.); Lyme Disease IgG Ab 58 kDa Ban Absent (.); Lyme Disease IgG Ab 66 kDa Ban Absent (.); Lyme Disease IgG Ab 93 kDa Ban Absent (.); Lyme Disease IgG West Blot Int Negative (.); Lyme Disease IgG/IgM Antibodie <0.91 ISR (0.00-0.90); Lyme Disease IgM Ab 23 kDa Ban Absent (.); Lyme Disease IgM Ab 39 kDa Ban Absent (.); Lyme Disease IgM Ab 41 kDa Ban Absent (.); Lyme Disease IgM Ab Quantitati 0.97 index (0.00-0.79); Lyme Disease IgM West Blot Int Negative (.)
== END ==
LOC: M WUC 10:00
PROVIDERS: ATTEND Physician Assistant
DX: A69.20 Lyme disease, unspecified (principal)

== ENCOUNTER → 2020-03-18 | Outpatient (CLI) | payer OTHER, MEDICAID ==
[2020-03-20 20:07] LABS: ANA (HEP2) Negative (.); CYCLIC CITRULLINATED PEPTIDE 6 units (0-19)
== END ==
LOC: M LAB 12:37
PROVIDERS: ATTEND Family Medicine
DX: R76.0 Raised antibody titer (principal)

== ENCOUNTER → 2020-05-20 | Outpatient (CLI) | payer OTHER, MEDICAID ==
[2020-05-20 14:35] LABS: BASO # 0.1 10^3/uL (0.0-0.2); BASO % 1.4 % (0.0-1.0); EOS # 0.3 10^3/uL (0.0-0.5); EOS % 5.4 % (0.0-3.0); HEMATOCRIT 39.8 % (36.0-47.0); HEMOGLOBIN 12.2 g/dl (12.0-15.5); LYMPH # 1.6 10^3/uL (1.5-5.0); LYMPH % 26.2 % (24.0-44.0); MEAN CORPUSCULAR HEMOGLOBIN 26.9 pg (27.0-33.0); MEAN CORPUSCULAR HGB CONC 30.7 g/dl (32.0-36.5); MEAN CORPUSCULAR VOLUME 87.9 fl (80.0-96.0); MONO # 0.7 10^3/uL (0.0-0.8); MONO % 11.3 % (0.0-5.0); NEUTROPHILS # 3.5 10^3/uL (1.5-8.5); NEUTROPHILS % 55.2 % (36.0-66.0); PLATELET COUNT, AUTOMATED 419 10^3/uL (150-450); RED BLOOD COUNT 4.53 10^6/uL (4.00-5.40); WHITE BLOOD COUNT 6.3 10^3/uL (4.0-10.0)
[2020-05-20 14:38] LABS: PERCENT SATURATION 6.8 % (13.2-45.0)
== END ==
LOC: M WUC 11:16
PROVIDERS: ATTEND Family Medicine
DX: D51.9 Vitamin B12 deficiency anemia, unspecified (principal); D50.9 Iron deficiency anemia, unspecified; Z98.84 Bariatric surgery status

== ENCOUNTER 2020-06-17 08:11 | Outpatient (CLI) | payer OTHER ==
[~2020-06-17] VITALS: Ht 165.1 cm; Wt 69.0 kg
[2020-06-17] VITALS (7 sets, daily range): BP systolic 104–141; BP diastolic 58–74
[2020-06-17] MEDS ORDERED: IRON SUCROSE 500 MG in NS 250 ML OVER 4 HRS IV ONE (08:30)
== END 2020-06-17 13:10 | disposition home or self-care (01) ==
LOC: M INFU 08:11
PROVIDERS: ATTEND Family Medicine
DX: D50.9 Iron deficiency anemia, unspecified (principal); Z88.6 Allergy status to analgesic agent
CPT/HCPCS: 96365; 96366; J1756

== ENCOUNTER → 2020-09-08 | Outpatient (CLI) | payer OTHER, MEDICAID ==
[2020-09-08 11:49] LABS: BASO # 0.1 10^3/uL (0.0-0.2); BASO % 1.4 % (0.0-1.0); EOS # 0.3 10^3/uL (0.0-0.5); EOS % 7.3 % (0.0-3.0); HEMATOCRIT 41.4 % (36.0-47.0); HEMOGLOBIN 13.1 g/dl (12.0-15.5); LYMPH # 1.8 10^3/uL (1.5-5.0); LYMPH % 40.9 % (24.0-44.0); MEAN CORPUSCULAR HEMOGLOBIN 28.4 pg (27.0-33.0); MEAN CORPUSCULAR HGB CONC 31.6 g/dl (32.0-36.5); MEAN CORPUSCULAR VOLUME 89.6 fl (80.0-96.0); MONO # 0.6 10^3/uL (0.0-0.8); NEUTROPHILS # 1.6 10^3/uL (1.5-8.5); NEUTROPHILS % 37.4 % (36.0-66.0); PLATELET COUNT, AUTOMATED 376 10^3/uL (150-450); RED BLOOD COUNT 4.62 10^6/uL (4.00-5.40); WHITE BLOOD COUNT 4.4 10^3/uL (4.0-10.0)
[2020-09-08 13:51] LABS: FERRITIN 6 NG/ML (8-252); IRON (FE) 40 UG/DL (50-170); PERCENT SATURATION 10.5 % (13.2-45.0); TOTAL 25(OH) VITAMIN D 40.1 NG/ML (30.0-100.0); TOTAL IRON BINDING CAPACITY 381 UG/DL (250-450); VITAMIN B12 LEVEL > 2000 PG/ML (247-911)
== END ==
LOC: M WUC 08:46
PROVIDERS: ATTEND Family Medicine
DX: D50.9 Iron deficiency anemia, unspecified (principal); D51.9 Vitamin B12 deficiency anemia, unspecified; E55.9 Vitamin D deficiency, unspecified

== ENCOUNTER 2020-09-16 06:42 | Outpatient (CLI) | payer OTHER ==
[~2020-09-16] VITALS: Ht 162.6 cm; Wt 69.0 kg
[2020-09-16 06:55] VITALS: BP 112/68
[2020-09-16] MEDS ORDERED: IRON SUCROSE 500 MG in NS 250 ML OVER 4 HRS IV ONE (07:00)
[2020-09-16 08:24] VITALS: BP 109/51
[2020-09-16 09:30] VITALS: BP 111/60
[2020-09-16 10:28] VITALS: BP 112/69
[2020-09-16 11:35] VITALS: BP 120/72
== END 2020-09-16 11:35 | disposition home or self-care (01) ==
LOC: M INFU 06:42
PROVIDERS: ATTEND Family Medicine
DX: D50.9 Iron deficiency anemia, unspecified (principal)
CPT/HCPCS: 96365; 96366; J1756

== ENCOUNTER → 2020-10-17 | Outpatient (CLI) | payer OTHER, MEDICAID ==
[2020-10-17 11:44] LABS: BASO # 0.1 10^3/uL (0.0-0.2); BASO % 1.7 % (0.0-1.0); EOS # 0.2 10^3/uL (0.0-0.5); EOS % 4.1 % (0.0-3.0); HEMATOCRIT 42.8 % (36.0-47.0); HEMOGLOBIN 13.7 g/dl (12.0-15.5); LYMPH # 1.5 10^3/uL (1.5-5.0); LYMPH % 35.9 % (24.0-44.0); MEAN CORPUSCULAR VOLUME 93.9 fl (80.0-96.0); MONO # 0.4 10^3/uL (0.0-0.8); MONO % 9.5 % (2.0-8.0); NEUTROPHILS % 48.6 % (36.0-66.0); PLATELET COUNT, AUTOMATED 323 10^3/uL (150-450); RED BLOOD COUNT 4.56 10^6/uL (4.00-5.40); WHITE BLOOD COUNT 4.1 10^3/uL (4.0-10.0)
[2020-10-17 12:22] LABS: ALBUMIN 3.9 GM/DL (3.2-5.2); ALT/SGPT 25 U/L (12-78); BILIRUBIN,TOTAL 0.4 MG/DL (0.2-1.0); BLOOD UREA NITROGEN 10 MG/DL (7-18); CALCIUM LEVEL 9.9 MG/DL (8.5-10.1); CARBON DIOXIDE LEVEL 32 MEQ/L (21-32); CHLORIDE LEVEL 108 MEQ/L (98-107); CREATININE FOR GFR 0.56 MG/DL (0.55-1.30); FERRITIN 37 NG/ML (8-252); FREE T4 0.82 NG/DL (0.76-1.46); GLOMERULAR FILTRATION RATE > 60.0 (>60); GLUCOSE, FASTING 81 MG/DL (70-100); IRON (FE) 79 UG/DL (50-170); POTASSIUM SERUM 4.7 MEQ/L (3.5-5.1); SODIUM LEVEL 141 MEQ/L (136-145); THYROID STIMULATING HORMONE 0.729 uIU/ML (0.358-3.740); TOTAL 25(OH) VITAMIN D 56.7 NG/ML (30.0-100.0); TOTAL IRON BINDING CAPACITY 359 UG/DL (250-450); TOTAL PROTEIN 7.1 GM/DL (6.4-8.2); VITAMIN B12 LEVEL 445 PG/ML (247-911)
== END ==
LOC: M WUC 08:56
PROVIDERS: ATTEND Family Medicine
DX: D50.9 Iron deficiency anemia, unspecified (principal); D51.9 Vitamin B12 deficiency anemia, unspecified; E55.9 Vitamin D deficiency, unspecified; Z98.84 Bariatric surgery status

== ENCOUNTER → 2021-01-18 | Outpatient (CLI) | payer OTHER, MEDICAID ==
[~2021-01-18] MED LIST changes: -DOXY100C37; +DOXY1CAP62
[2021-01-18 17:03] LABS: BASO # 0.1 10^3/uL (0.0-0.2); BASO % 2.1 % (0.0-1.0); EOS # 0.2 10^3/uL (0.0-0.5); EOS % 5.4 % (0.0-3.0); HEMOGLOBIN 13.6 g/dl (12.0-15.5); LYMPH # 1.4 10^3/uL (1.5-5.0); LYMPH % 35.8 % (24.0-44.0); MEAN CORPUSCULAR HEMOGLOBIN 29.8 pg (27.0-33.0); MEAN CORPUSCULAR HGB CONC 31.6 g/dl (32.0-36.5); MEAN CORPUSCULAR VOLUME 94.1 fl (80.0-96.0); MONO # 0.5 10^3/uL (0.0-0.8); MONO % 13.4 % (2.0-8.0); NEUTROPHILS # 1.7 10^3/uL (1.5-8.5); NEUTROPHILS % 43.3 % (36.0-66.0); PLATELET COUNT, AUTOMATED 341 10^3/uL (150-450); RED BLOOD COUNT 4.57 10^6/uL (4.00-5.40); WHITE BLOOD COUNT 3.9 10^3/uL (4.0-10.0)
[2021-01-18 17:19] LABS: PERCENT SATURATION 51.6 % (13.2-45.0)
[2021-01-18 17:23] LABS: TOTAL 25(OH) VITAMIN D 57.2 NG/ML (30.0-100.0)
== END ==
LOC: M WUC 10:29
PROVIDERS: ATTEND Family Medicine
DX: D50.9 Iron deficiency anemia, unspecified (principal); E55.9 Vitamin D deficiency, unspecified

== ENCOUNTER → 2021-02-16 | Outpatient (CLI) | payer OTHER ==
--- NOTE | 2021-02-21 17:01 | SLEEPHOME ---
DATE: 02/21/2021 ORDERED BY: Jacob Pruitt Diagnostic home sleep testing was performed due to concern for the obstructive sleep apnea syndrome in this patient with a history of hypersomnia. For testing, a NIOX T3 respiratory monitoring device was used. Continuous record was made of pulse, oxygen saturation, air flow, chest and abdominal strain, and body position. There was 11 hours and 59 minutes of data reviewed. There was 8 hours and 44 minutes marked as time in bed. During the interval marked time in bed, there were only 7 respiratory events identified of 10 seconds in duration or greater for a respiratory disturbance index of 0.8, which is normal. Baseline pulse rate 73. Pulse rate ranged 59-103. Baseline saturation 94%. Saturations remained 91% plus throughout the study. Testing was performed in both the supine and nonsupine positions. IMPRESSION: Normal diagnostic home sleep test. No evidence of obstructive sleep apnea syndrome was demonstrated.
== END ==
LOC: M SLEEP HO 10:04
PROVIDERS: ATTEND Physician Assistant
DX: G47.10 Hypersomnia, unspecified (principal)

== ENCOUNTER → 2021-03-22 | Outpatient (CLI) | payer OTHER, MEDICAID ==
[2021-03-22 10:56] LABS: BASO # 0.1 10^3/uL (0.0-0.2); BASO % 1.6 % (0.0-1.0); EOS # 0.2 10^3/uL (0.0-0.5); EOS % 4.2 % (0.0-3.0); HEMATOCRIT 42.4 % (36.0-47.0); HEMOGLOBIN 13.5 g/dl (12.0-15.5); LYMPH # 1.6 10^3/uL (1.5-5.0); LYMPH % 43.3 % (24.0-44.0); MEAN CORPUSCULAR HEMOGLOBIN 29.5 pg (27.0-33.0); MEAN CORPUSCULAR HGB CONC 31.8 g/dl (32.0-36.5); MEAN CORPUSCULAR VOLUME 92.6 fl (80.0-96.0); MONO # 0.5 10^3/uL (0.0-0.8); MONO % 12.7 % (2.0-8.0); NEUTROPHILS # 1.4 10^3/uL (1.5-8.5); NEUTROPHILS % 37.9 % (36.0-66.0); PLATELET COUNT, AUTOMATED 327 10^3/uL (150-450); RED BLOOD COUNT 4.58 10^6/uL (4.00-5.40); WHITE BLOOD COUNT 3.8 10^3/uL (4.0-10.0)
[2021-03-22 11:26] LABS: PERCENT SATURATION 32.5 % (13.2-45.0)
[2021-03-22 11:30] LABS: FOLATE 10.1 NG/ML (>5.4)
== END ==
LOC: M LAB 10:01
PROVIDERS: ATTEND Physician Assistant
DX: D50.9 Iron deficiency anemia, unspecified (principal)

== ENCOUNTER → 2021-08-30 | Outpatient (CLI) | payer OTHER, MEDICAID ==
[~2021-08-30] MED LIST changes: +DOXY-443; -DOXY1CAP62
[2021-08-30 12:57] LABS: BASO # 0.1 10^3/uL (0.0-0.2); BASO % 0.9 % (0.0-1.0); EOS # 0.1 10^3/uL (0.0-0.5); EOS % 1.8 % (0.0-3.0); LYMPH # 1.5 10^3/uL (1.5-5.0); LYMPH % 26.6 % (24.0-44.0); MEAN CORPUSCULAR HEMOGLOBIN 28.4 pg (27.0-33.0); MEAN CORPUSCULAR HGB CONC 31.7 g/dl (32.0-36.5); MEAN CORPUSCULAR VOLUME 89.7 fl (80.0-96.0); MONO # 0.8 10^3/uL (0.0-0.8); MONO % 13.7 % (2.0-8.0); NEUTROPHILS # 3.2 10^3/uL (1.5-8.5); NEUTROPHILS % 56.8 % (36.0-66.0); PLATELET COUNT, AUTOMATED 407 10^3/uL (150-450); RED BLOOD COUNT 4.57 10^6/uL (4.00-5.40); WHITE BLOOD COUNT 5.6 10^3/uL (4.0-10.0)
[2021-08-30 13:30] LABS: ALBUMIN 4.2 GM/DL (3.2-5.2); ALT/SGPT 26 U/L (12-78); BILIRUBIN,TOTAL 0.3 MG/DL (0.2-1.0); BLOOD UREA NITROGEN 10 MG/DL (7-18); CALCIUM LEVEL 9.6 MG/DL (8.5-10.1); CARBON DIOXIDE LEVEL 34 MEQ/L (21-32); CHLORIDE LEVEL 106 MEQ/L (98-107); CREATININE FOR GFR 0.65 MG/DL (0.55-1.30); FERRITIN 5 NG/ML (8-252); GLOMERULAR FILTRATION RATE > 60.0 (>60); GLUCOSE, FASTING 64 MG/DL (70-100); IRON (FE) 37 UG/DL (50-170); PERCENT SATURATION 9.5 % (13.2-45.0); POTASSIUM SERUM 4.4 MEQ/L (3.5-5.1); SODIUM LEVEL 141 MEQ/L (136-145); TOTAL IRON BINDING CAPACITY 389 UG/DL (250-450); TOTAL PROTEIN 7.1 GM/DL (6.4-8.2)
[2021-08-30 13:36] LABS: TOTAL 25(OH) VITAMIN D 41.7 NG/ML (30.0-100.0); VITAMIN B12 LEVEL 480 PG/ML
[2021-08-30 13:38] LABS: FOLATE 8.2 NG/ML
== END ==
LOC: M WUC 09:59
PROVIDERS: ATTEND Physician Assistant
DX: M32.9 Systemic lupus erythematosus, unspecified (principal); D51.9 Vitamin B12 deficiency anemia, unspecified; Z98.84 Bariatric surgery status

== ENCOUNTER → 2021-11-08 | Outpatient (CLI) | payer OTHER, MEDICAID ==
[2021-11-08 12:41] LABS: BASO # 0.1 10^3/uL (0.0-0.2); EOS # 0.2 10^3/uL (0.0-0.5); EOS % 5.6 % (0.0-3.0); HEMATOCRIT 38.3 % (36.0-47.0); HEMOGLOBIN 12.1 g/dl (12.0-15.5); LYMPH # 1.5 10^3/uL (1.5-5.0); LYMPH % 37.5 % (24.0-44.0); MEAN CORPUSCULAR HEMOGLOBIN 27.8 pg (27.0-33.0); MEAN CORPUSCULAR HGB CONC 31.6 g/dl (32.0-36.5); MONO # 0.6 10^3/uL (0.0-0.8); MONO % 14.9 % (2.0-8.0); NEUTROPHILS # 1.6 10^3/uL (1.5-8.5); PLATELET COUNT, AUTOMATED 309 10^3/uL (150-450); RED BLOOD COUNT 4.35 10^6/uL (4.00-5.40)
[2021-11-08 13:08] LABS: ALBUMIN 3.8 GM/DL (3.2-5.2); ALT/SGPT 21 U/L (12-78); BILIRUBIN,TOTAL 0.3 MG/DL (0.2-1.0); BLOOD UREA NITROGEN 13 MG/DL (7-18); CALCIUM LEVEL 9.6 MG/DL (8.5-10.1); CARBON DIOXIDE LEVEL 29 MEQ/L (21-32); CHLORIDE LEVEL 109 MEQ/L (98-107); CREATININE FOR GFR 0.75 MG/DL (0.55-1.30); FERRITIN 6 NG/ML (8-252); GLOMERULAR FILTRATION RATE > 60.0 (>60); GLUCOSE, FASTING 80 MG/DL (70-100); IRON (FE) 42 UG/DL (50-170); PERCENT SATURATION 11.3 % (13.2-45.0); POTASSIUM SERUM 4.9 MEQ/L (3.5-5.1); SODIUM LEVEL 142 MEQ/L (136-145); TOTAL IRON BINDING CAPACITY 373 UG/DL (250-450); TOTAL PROTEIN 6.9 GM/DL (6.4-8.2)
== END ==
LOC: M WUC 10:18
PROVIDERS: ATTEND Physician Assistant
DX: D50.9 Iron deficiency anemia, unspecified (principal)

== ENCOUNTER → 2021-12-26 | Outpatient (REF) | payer OTHER, MEDICAID | LOC: M LAB REF 16:51 | PROVIDERS: ATTEND Family Medicine | DX: N76.0 Acute vaginitis (principal) ==

== ENCOUNTER → 2022-01-08 | Outpatient (CLI) | payer OTHER | LOC: M RAD 16:50 | PROVIDERS: ATTEND Family Medicine | DX: M79.672 Pain in left foot (principal) ==

== ENCOUNTER → 2022-09-13 | Outpatient (CLI) | payer OTHER, MEDICAID ==
[2022-09-13 17:13] LABS: BASO # 0.1 10^3/uL (0.0-0.2); BASO % 1.1 % (0.0-1.0); EOS # 0.2 10^3/uL (0.0-0.5); EOS % 2.8 % (0.0-3.0); HEMOGLOBIN 10.3 g/dl (12.0-15.5); LYMPH # 2.1 10^3/uL (1.5-5.0); LYMPH % 34.3 % (24.0-44.0); MEAN CORPUSCULAR HGB CONC 29.4 g/dl (32.0-36.5); MEAN CORPUSCULAR VOLUME 78.1 fl (80.0-96.0); MONO # 0.8 10^3/uL (0.0-0.8); MONO % 13.4 % (2.0-8.0); NEUTROPHILS # 2.9 10^3/uL (1.5-8.5); NEUTROPHILS % 48.1 % (36.0-66.0); PLATELET COUNT, AUTOMATED 431 10^3/uL (150-450); RED BLOOD COUNT 4.48 10^6/uL (4.00-5.40); WHITE BLOOD COUNT 6.1 10^3/uL (4.0-10.0)
[2022-09-13 17:19] LABS: PERCENT SATURATION 5.2 % (13.2-45.0)
[2022-09-13 17:20] LABS: FERRITIN 2.2 NG/ML (7.3-270.7); THYROID STIMULATING HORMONE 0.756 uIU/ML (0.55-4.78)
[2022-09-13 17:21] LABS: FOLATE 10.77 NG/ML (>5.4); TOTAL 25(OH) VITAMIN D 27.8 NG/ML (20.0-100.0)
[2022-09-13 17:36] LABS: FREE T4 0.98 NG/DL (0.89-1.76)
== END ==
LOC: M WUC 13:16
PROVIDERS: ATTEND Family Medicine
DX: D50.9 Iron deficiency anemia, unspecified (principal); D51.9 Vitamin B12 deficiency anemia, unspecified; E55.9 Vitamin D deficiency, unspecified

== ENCOUNTER 2022-09-28 08:54 | Outpatient (CLI) | payer OTHER ==
[~2022-09-28] VITALS: Ht 166.4 cm; Wt 70.0 kg
[2022-09-28 09:17] VITALS: BP 113/59
[2022-09-28] MEDS ORDERED: IRON SUCROSE 500 MG in NS 250 ML OVER 4 HRS IV ONE (09:30)
[2022-09-28 10:30] VITALS: BP 122/65
[2022-09-28 11:30] VITALS: BP 115/62
[2022-09-28 12:30] VITALS: BP 113/70
== END 2022-09-28 13:30 ==
LOC: M INFU 08:54
PROVIDERS: ATTEND Family Medicine
DX: D50.9 Iron deficiency anemia, unspecified (principal); Z88.5 Allergy status to narcotic agent
CPT/HCPCS: 96365; 96366; J1756

== ENCOUNTER → 2022-12-07 | Outpatient (REF) | payer OTHER, MEDICAID | LOC: M LAB REF 15:14 | PROVIDERS: ATTEND Family Medicine | DX: N76.0 Acute vaginitis (principal); R30.0 Dysuria ==

== ENCOUNTER → 2023-05-10 | Outpatient (REF) | payer OTHER, MEDICAID ==
[2023-05-10 13:13] LABS: BASO # 0.1 10^3/uL (0.0-0.2); BASO % 1.6 % (0.0-1.0); EOS # 0.3 10^3/uL (0.0-0.5); EOS % 4.5 % (0.0-3.0); HEMATOCRIT 35.4 % (36.0-47.0); HEMOGLOBIN 10.6 g/dl (12.0-15.5); LYMPH # 1.3 10^3/uL (1.5-5.0); LYMPH % 23.9 % (24.0-44.0); MEAN CORPUSCULAR HEMOGLOBIN 24.2 pg (27.0-33.0); MEAN CORPUSCULAR HGB CONC 29.9 g/dl (32.0-36.5); MEAN CORPUSCULAR VOLUME 80.8 fl (80.0-96.0); MONO # 0.7 10^3/uL (0.0-0.8); MONO % 12.1 % (2.0-8.0); NEUTROPHILS # 3.2 10^3/uL (1.5-8.5); NEUTROPHILS % 57.7 % (36.0-66.0); PLATELET COUNT, AUTOMATED 445 10^3/uL (150-450); RED BLOOD COUNT 4.38 10^6/uL (4.00-5.40); WHITE BLOOD COUNT 5.6 10^3/uL (4.0-10.0)
[2023-05-10 13:35] LABS: PERCENT SATURATION 6.8 % (13.2-45.0)
[2023-05-10 13:37] LABS: FERRITIN 3.1 NG/ML (7.3-270.7)
== END ==
LOC: M LABWUC 11:55
PROVIDERS: ATTEND Family Medicine
DX: D50.9 Iron deficiency anemia, unspecified (principal); D51.9 Vitamin B12 deficiency anemia, unspecified

== ENCOUNTER 2023-05-24 10:03 | Outpatient (CLI) | payer OTHER ==
[~2023-05-24] VITALS: Ht 165.1 cm; Wt 70.5 kg
[2023-05-24] MEDS ORDERED: IRON SUCROSE 500 MG in NS 250 ML OVER 4 HRS IV ONE (10:30)
[2023-05-24 10:36] VITALS: BP 120/71; O2SAT 100
[2023-05-24 12:30] VITALS: BP 120/70; O2SAT 98
[2023-05-24 13:30] VITALS: BP 127/74; O2SAT 98
[2023-05-24 14:30] VITALS: BP 120/66; O2SAT 99
[2023-05-24 15:15] VITALS: BP 116/63; O2SAT 97
== END 2023-05-24 15:15 | disposition home or self-care (01) ==
LOC: M INFU 10:03
PROVIDERS: ATTEND Family Medicine
DX: D50.9 Iron deficiency anemia, unspecified (principal); Z88.5 Allergy status to narcotic agent
CPT/HCPCS: 96365; 96366; J1756

== ENCOUNTER → 2023-10-04 | Outpatient (CLI) | payer OTHER ==
[2023-10-04 12:24] LABS: BASO # 0.1 10^3/uL (0.0-0.2); BASO % 2.2 % (0.0-1.0); EOS # 0.4 10^3/uL (0.0-0.5); EOS % 7.2 % (0.0-3.0); HEMATOCRIT 36.4 % (36.0-47.0); HEMOGLOBIN 11.2 g/dl (12.0-15.5); LYMPH % 37.3 % (24.0-44.0); MEAN CORPUSCULAR HEMOGLOBIN 26.1 pg (27.0-33.0); MEAN CORPUSCULAR HGB CONC 30.8 g/dl (32.0-36.5); MEAN CORPUSCULAR VOLUME 84.8 fl (80.0-96.0); MONO # 0.7 10^3/uL (0.0-0.8); MONO % 13.6 % (2.0-8.0); NEUTROPHILS # 2.2 10^3/uL (1.5-8.5); NEUTROPHILS % 39.5 % (36.0-66.0); PLATELET COUNT, AUTOMATED 420 10^3/uL (150-450); RED BLOOD COUNT 4.29 10^6/uL (4.00-5.40); WHITE BLOOD COUNT 5.4 10^3/uL (4.0-10.0)
[2023-10-04 12:33] LABS: ERYTHROCYTE SEDIMENTATION RATE 13 mm/hr (0-20)
[2023-10-04 13:20] LABS: THYROID STIMULATING HORMONE 0.448 uIU/ML (0.55-4.78); TOTAL 25(OH) VITAMIN D 12.8 NG/ML (20.0-100.0)
[2023-10-04 13:21] LABS: C REACTIVE PROTEIN QUANTITATIV < 0.40 MG/DL (<1.0)
[2023-10-04 13:23] LABS: FREE T4 1.05 NG/DL (0.89-1.76); IRON (FE) 67 UG/DL (50-170)
[2023-10-04 13:24] LABS: VITAMIN B12 LEVEL 478 PG/ML (211-911)
[2023-10-04 13:26] LABS: PERCENT SATURATION 16.8 % (13.2-45.0); TOTAL IRON BINDING CAPACITY 398 UG/DL (250-425)
== END ==
LOC: M PLALAB 11:31
PROVIDERS: ATTEND Family Medicine
DX: D50.9 Iron deficiency anemia, unspecified (principal); Z98.84 Bariatric surgery status; E55.9 Vitamin D deficiency, unspecified; M32.9 Systemic lupus erythematosus, unspecified; R53.83 Other fatigue

== ENCOUNTER 2023-10-24 08:01 | Outpatient (CLI) | payer OTHER ==
[~2023-10-24] VITALS: Ht 165.1 cm; Wt 68.1 kg
[~2023-10-24 08:01] MED LIST changes: +DOXY-323; -DOXY-443
[2023-10-24 08:15] VITALS: BP 110/69; O2SAT 99
[2023-10-24] MEDS: IRON SUCROSE 500 MG in NS 250 ML OVER 4 HRS IV ONE (08:52)
[2023-10-24 11:30] VITALS: BP 111/58; O2SAT 97
[2023-10-24 12:55] VITALS: BP 120/66; O2SAT 100
== END 2023-10-24 13:00 | disposition home or self-care (01) ==
LOC: M INFU 08:01
PROVIDERS: ATTEND Family Medicine
DX: D50.9 Iron deficiency anemia, unspecified (principal); Z88.5 Allergy status to narcotic agent
CPT/HCPCS: 96365; 96366; J1756

== ENCOUNTER → 2024-04-10 | Outpatient (CLI) | payer OTHER ==
[~2024-04-10] MED LIST changes: -DOXY-323; +DOXY-441; +ONDA-282 PO; -ONDA4TAB6 PO
== END ==
LOC: M PLAIMG 08:41
PROVIDERS: ATTEND Family Medicine
DX: M54.6 Pain in thoracic spine (principal); M54.16 Radiculopathy, lumbar region

== ENCOUNTER → 2024-04-15 | Outpatient (CLI) | payer OTHER ==
[2024-04-15 10:21] LABS: BASO # 0.1 10^3/uL (0.0-0.2); BASO % 1.8 % (0.0-1.0); EOS # 0.5 10^3/uL (0.0-0.5); EOS % 10.3 % (0.0-3.0); HEMOGLOBIN 12.6 g/dl (12.0-15.5); LYMPH # 2.5 10^3/uL (1.5-5.0); LYMPH % 53.7 % (24.0-44.0); MEAN CORPUSCULAR HGB CONC 31.5 g/dl (32.0-36.5); MEAN CORPUSCULAR VOLUME 85.7 fl (80.0-96.0); MONO # 0.6 10^3/uL (0.0-0.8); MONO % 12.1 % (2.0-8.0); NEUTROPHILS % 21.9 % (36.0-66.0); PLATELET COUNT, AUTOMATED 339 10^3/uL (150-450); RED BLOOD COUNT 4.67 10^6/uL (4.00-5.40); WHITE BLOOD COUNT 4.6 10^3/uL (4.0-10.0)
[2024-04-15 10:46] LABS: ALKALINE PHOSPHATASE 85 U/L (35-104); ALT/SGPT 34 U/L (7.0-40); AST/SGOT 24 U/L (<34); BILIRUBIN,TOTAL 0.3 MG/DL (0.3-1.2); BLOOD UREA NITROGEN 10 MG/DL (9-23); CALCIUM LEVEL 10.1 MG/DL (8.5-10.1); CARBON DIOXIDE LEVEL 29 MMOL/L (20-31); CHLORIDE LEVEL 104 MMOL/L (98-107); CHOLESTEROL LEVEL 177 MG/DL (<200); CHOLESTEROL RISK RATIO 3.13 (<5); CREATININE FOR GFR 0.67 MG/DL (0.55-1.30); GLOMERULAR FILTRATION RATE > 60.0 (>60); GLUCOSE, FASTING 85 MG/DL (60-100); HDL CHOLESTEROL 56.5 MG/DL (>40); IRON (FE) 62 UG/DL (50-170); LDL CHOLESTEROL 103.3 MG/DL (<100); NON-HDL-C 120.5 MG/DL; POTASSIUM SERUM 4.7 MMOL/L (3.5-5.1); SODIUM LEVEL 138 MMOL/L (136-145); TOTAL PROTEIN 7.5 G/DL (5.7-8.2); TRIGLYCERIDES LEVEL 86 MG/DL (<150)
[2024-04-15 10:50] LABS: FERRITIN 6.1 NG/ML (7.3-270.7); THYROID STIMULATING HORMONE 1.014 uIU/ML (0.55-4.78); TOTAL 25(OH) VITAMIN D 37.6 NG/ML (20.0-100.0)
[2024-04-15 10:51] LABS: FREE T4 1.43 NG/DL (0.89-1.76)
[2024-04-15 10:52] LABS: VITAMIN B12 LEVEL 580 PG/ML (211-911)
== END ==
LOC: M WUC 08:28
PROVIDERS: ATTEND Family Medicine
DX: Z13.29 Encounter for screening for other suspected endocrine disorder (principal); Z13.0 Encounter for screening for diseases of the blood and blood-forming organs and certain disorders involving the immune mechanism; D50.9 Iron deficiency anemia, unspecified; Z98.84 Bariatric surgery status; Z13.220 Encounter for screening for lipoid disorders

== ENCOUNTER 2024-05-05 07:08 | Outpatient (CLI) | payer OTHER ==
[~2024-05-05] VITALS: Ht 167.6 cm; Wt 72.7 kg
[2024-05-05] MEDS: IRON SUCROSE 500 MG in NS 250 ML OVER 4 HRS IV ONE (08:05)
[2024-05-05 09:00] VITALS: BP 133/71; O2SAT 98
[2024-05-05 10:00] VITALS: BP 122/59; O2SAT 100
[2024-05-05 11:00] VITALS: BP 109/65; O2SAT 97
[2024-05-05 12:23] VITALS: BP 124/75; O2SAT 96
== END 2024-05-05 12:25 ==
LOC: M INFU 07:08
PROVIDERS: ATTEND Family Medicine
DX: D50.9 Iron deficiency anemia, unspecified (principal); Z88.5 Allergy status to narcotic agent
CPT/HCPCS: 96365; 96366; J1756

== ENCOUNTER → 2024-10-16 | Outpatient (CLI) | payer OTHER | LOC: M WHC 06:37 | PROVIDERS: ATTEND Family Medicine | DX: N92.1 Excessive and frequent menstruation with irregular cycle (principal); R10.2 Pelvic and perineal pain; N83.201 Unspecified ovarian cyst, right side; R93.89 Abnormal findings on diagnostic imaging of other specified body structures ==

== ENCOUNTER → 2024-10-16 | Outpatient (CLI) | payer OTHER ==
[2024-10-16 11:33] LABS: PERCENT SATURATION 18.2 % (13.2-45.0)
[2024-10-16 11:35] LABS: FERRITIN 4.1 NG/ML (7.3-270.7)
[2024-10-16 11:36] LABS: FOLATE 10.3 NG/ML (>5.4)
[2024-10-16 11:40] LABS: BASO # 0.1 10^3/uL (0.0-0.2); BASO % 2.1 % (0.0-1.0); EOS # 0.4 10^3/uL (0.0-0.5); HEMATOCRIT 41.8 % (36.0-47.0); HEMOGLOBIN 13.3 g/dl (12.0-15.5); LYMPH # 1.9 10^3/uL (1.5-5.0); LYMPH % 43.7 % (24.0-44.0); MEAN CORPUSCULAR HEMOGLOBIN 28.9 pg (27.0-33.0); MEAN CORPUSCULAR HGB CONC 31.8 g/dl (32.0-36.5); MEAN CORPUSCULAR VOLUME 90.9 fl (80.0-96.0); MONO # 0.6 10^3/uL (0.0-0.8); MONO % 12.6 % (2.0-8.0); NEUTROPHILS # 1.5 10^3/uL (1.5-8.5); NEUTROPHILS % 33.6 % (36.0-66.0); PLATELET COUNT, AUTOMATED 352 10^3/uL (150-450); WHITE BLOOD COUNT 4.4 10^3/uL (4.0-10.0)
== END ==
LOC: M PLALAB 07:53
PROVIDERS: ATTEND Family Medicine
DX: D50.9 Iron deficiency anemia, unspecified (principal); E55.9 Vitamin D deficiency, unspecified

== ENCOUNTER → 2024-12-16 | Outpatient (CLI) | payer OTHER ==
[2024-12-16 17:42] LABS: BASO # 0.1 10^3/uL (0.0-0.2); BASO % 1.1 % (0.0-1.0); EOS # 0.3 10^3/uL (0.0-0.5); EOS % 5.4 % (0.0-3.0); LYMPH # 2.4 10^3/uL (1.5-5.0); LYMPH % 43.2 % (24.0-44.0); MONO # 0.6 10^3/uL (0.0-0.8); MONO % 10.1 % (2.0-8.0); NEUTROPHILS # 2.2 10^3/uL (1.5-8.5); NEUTROPHILS % 40.2 % (36.0-66.0); PLATELET COUNT, AUTOMATED 328 10^3/uL (150-450)
[2024-12-16 18:02] LABS: TOTAL PROTEIN,RANDOM URINE 22.4 MG/DL (0.0-14.0)
[2024-12-16 18:09] LABS: ALT/SGPT 20 U/L (7.0-40); AST/SGOT 22 U/L (<34); C REACTIVE PROTEIN QUANTITATIV < 0.50 MG/DL (<1.0); CALCIUM LEVEL 9.6 MG/DL (8.5-10.1); CARBON DIOXIDE LEVEL 29 MMOL/L (20-31); CHLORIDE LEVEL 105 MMOL/L (98-107); COMPLEMENT C4 16.8 MG/DL (12-36); CREATININE FOR GFR 0.64 MG/DL (0.55-1.30); GLOMERULAR FILTRATION RATE > 90.0 (>60); POTASSIUM SERUM 4.4 MMOL/L (3.5-5.1); SODIUM LEVEL 143 MMOL/L (136-145)
[2024-12-16 18:10] LABS: ERYTHROCYTE SEDIMENTATION RATE 8 mm/hr (0-20)
[2024-12-23 19:28] LABS: ANTI DS-DNA AB NEGATIVE (NEGATIVE)
== END ==
LOC: M LAB 16:21
PROVIDERS: ATTEND Physician Assistant
DX: M32.9 Systemic lupus erythematosus, unspecified (principal)

== ENCOUNTER → 2024-12-23 | Outpatient (CLI) | payer OTHER ==
[2024-12-23 16:59] LABS: HCG, SERUM QUALITATIVE NEGATIVE (NEGATIVE)
[2024-12-23 17:37] LABS: HEPATITIS C VIRUS ABY INDEX 0.39 INDEX (<0.8)
== END ==
LOC: M LAB 15:20
PROVIDERS: ATTEND Physician Assistant
DX: M32.9 Systemic lupus erythematosus, unspecified (principal); Z11.59 Encounter for screening for other viral diseases; Z11.1 Encounter for screening for respiratory tuberculosis

== ENCOUNTER → 2025-01-07 | Outpatient (CLI) | payer MEDICAID, OTHER ==
[2025-01-07 12:37] LABS: BASO # 0.1 10^3/uL (0.0-0.2); BASO % 1.5 % (0.0-1.0); EOS # 0.1 10^3/uL (0.0-0.5); EOS % 2.9 % (0.0-3.0); LYMPH # 1.7 10^3/uL (1.5-5.0); LYMPH % 41.9 % (24.0-44.0); MONO # 0.4 10^3/uL (0.0-0.8); MONO % 10.8 % (2.0-8.0); NEUTROPHILS # 1.7 10^3/uL (1.5-8.5); NEUTROPHILS % 42.7 % (36.0-66.0); PLATELET COUNT, AUTOMATED 308 10^3/uL (150-450)
[2025-01-07 13:21] LABS: ALT/SGPT 20 U/L (7.0-40); AST/SGOT 19 U/L (<34); CALCIUM LEVEL 9.4 MG/DL (8.5-10.1); CARBON DIOXIDE LEVEL 29 MMOL/L (20-31); CHLORIDE LEVEL 105 MMOL/L (98-107); CREATININE FOR GFR 0.67 MG/DL (0.55-1.30); GLOMERULAR FILTRATION RATE > 90.0 (>60); POTASSIUM SERUM 4.6 MMOL/L (3.5-5.1); SODIUM LEVEL 144 MMOL/L (136-145); VITAMIN B12 LEVEL 376 PG/ML (211-911)
[2025-01-11 19:42] LABS: VITAMIN E(ALPHA TOCOPHEROL) 15.0 mg/L (5.7-19.9); VITAMIN E(GAMMA TOCOPHEROL) 1.8 mg/L (<=4.3)
== END ==
LOC: M WUC 09:07
PROVIDERS: ATTEND Psychiatry & Neurology Neurology
DX: R41.3 Other amnesia (principal); M32.9 Systemic lupus erythematosus, unspecified; R51.9 Headache, unspecified

== ENCOUNTER → 2025-04-22 | Outpatient (CLI) | payer OTHER ==
[2025-04-22 13:07] LABS: BASO # 0.1 10^3/uL (0.0-0.2); BASO % 1.1 % (0.0-1.0); EOS # 0.4 10^3/uL (0.0-0.5); EOS % 8.6 % (0.0-3.0); LYMPH # 2.1 10^3/uL (1.5-5.0); LYMPH % 45.9 % (24.0-44.0); MONO # 0.6 10^3/uL (0.0-0.8); MONO % 13.3 % (2.0-8.0); NEUTROPHILS # 1.4 10^3/uL (1.5-8.5); NEUTROPHILS % 30.9 % (36.0-66.0); PLATELET COUNT, AUTOMATED 311 10^3/uL (150-450)
[2025-04-22 13:11] LABS: ALT/SGPT 17 U/L (7.0-40); AST/SGOT 22 U/L (<34); CALCIUM LEVEL 9.5 MG/DL (8.5-10.1); CARBON DIOXIDE LEVEL 29 MMOL/L (20-31); CHLORIDE LEVEL 106 MMOL/L (98-107); CHOLESTEROL LEVEL 168 MG/DL (<200); CHOLESTEROL RISK RATIO 3.23 (<5); CREATININE FOR GFR 0.65 MG/DL (0.55-1.30); GLOMERULAR FILTRATION RATE > 90.0 (>60); IRON (FE) 71 UG/DL (50-170); LDL CHOLESTEROL 100.6 MG/DL (<100); MAGNESIUM LEVEL 2.0 MG/DL (1.8-2.4); NON-HDL-C 116.0 MG/DL; PERCENT SATURATION 19.7 % (13.2-45.0); POTASSIUM SERUM 4.8 MMOL/L (3.5-5.1); SODIUM LEVEL 144 MMOL/L (136-145); TOTAL 25(OH) VITAMIN D 27.3 NG/ML (20.0-100.0); TRIGLYCERIDES LEVEL 77 MG/DL (<150)
[2025-04-22 13:12] LABS: VITAMIN B12 LEVEL 312 PG/ML (211-911)
[2025-04-22 13:13] LABS: FREE T4 1.21 NG/DL (0.89-1.76)
== END ==
LOC: M WUC 09:02
PROVIDERS: ATTEND Family Medicine
DX: D50.9 Iron deficiency anemia, unspecified (principal); Z98.84 Bariatric surgery status